=== PATIENT | male | born 1970 | race Caucasian/White ===

== ENCOUNTER → 2016-12-17 | Outpatient (CLI) | payer SELFPAY ==
[2016-12-17 11:04] LABS: BASOPHILS # (AUTO) 0.02 10*3/UL; BASOPHILS % (AUTO) 0.2 % (0-1); EOSINOPHILS # (AUTO) 0.05 10*3/UL; EOSINOPHILS % (AUTO) 0.5 % (0-8); HEMATOCRIT 48.4 % (42.0-52.0); HEMOGLOBIN 17.5 g/dL (14.0-18.0); MEAN CORPUSCULAR HEMOGLOBIN 37.7 PG (27-31); MEAN CORPUSCULAR HGB CONC 36.2 g/dL (33-37); MEAN CORPUSCULAR VOLUME 104.3 FL (80-90); MEAN PLATELET VOLUME 10.4 FL (7.4-12.2); MONOCYTES # (AUTO) 0.76 10*3/UL (0.3-0.8); NEUTROPHILS # (AUTO) 6.99 10*3/UL; NEUTROPHILS % (AUTO) 73.2 % (50-80); RED BLOOD COUNT 4.64 10^6/uL (4.70-6.10)
[2016-12-17 11:05] LABS: PLATELET MORPHOLOGY COMMENT NORMAL MORPHOLOGY (NORM); RBC MORPHOLOGY COMMENT NORMAL MORPHOLOGY (NORM); WBC MORPHOLOGY COMMENT NORMAL MORPHOLOGY (NORM)
== END ==
LOC: MOB LAB 09:54
PROVIDERS: ATTEND Physician Assistant Medical
DX: M25.562 Pain in left knee (principal)
CPT/HCPCS: 36415; 84550; 85025; 85652; 86038; 86140; 86200; 86431

== ENCOUNTER → 2016-12-18 | Outpatient (CLI) | payer SELFPAY ==
[2016-12-18 12:02] LABS: APPEARANCE,SYNOVIAL FLUID SLIGHTLY HAZY (CLEAR, STRA); COLOR,SYNOVIAL FLUID STRAW (CLR, STRW)
[2016-12-18 12:20] LABS: CRYSTALS, SYNOVIAL FLUID NONE SEEN (NS)
[2016-12-18 12:22] LABS: NEUTROPHILS,SYNOVIAL FLUID 88.9 %
== END ==
LOC: ORTHO 11:34
PROVIDERS: ATTEND Physician Assistant
DX: M25.462 Effusion, left knee (principal)
CPT/HCPCS: 84157; 87070; 87075; 89051; 89060

== ENCOUNTER → 2016-12-18 | Outpatient (CLI) | payer SELFPAY ==
--- NOTE | 2016-12-18 16:36 | DI ---
XR KNEE CMPT 4 OR MORE VWS,12/18/2016 10:41 AM: Clinical History: Left knee pain. Previous Exam: None at this facility. Findings: 4 views the left knee are obtained, and demonstrate anatomic alignment without fractures. There is a large left knee joint effusion. Impression: Large left knee joint effusion.
== END ==
LOC: ORTHO 10:47
PROVIDERS: ATTEND Physician Assistant
DX: M25.562 Pain in left knee (principal); M25.462 Effusion, left knee
CPT/HCPCS: 73564

== ENCOUNTER → 2016-12-20 | Outpatient (CLI) | payer SELFPAY ==
[2016-12-20 10:34] LABS: WBC, BODY FLUID 2.957 10*3/uL
[2016-12-20 10:35] LABS: APPEARANCE,SYNOVIAL FLUID CLEAR (CLEAR, STRA); COLOR,SYNOVIAL FLUID STRAW (CLR, STRW); NEUTROPHILS,SYNOVIAL FLUID 64.1 %
[2016-12-20 10:41] LABS: CRYSTALS, SYNOVIAL FLUID NONE SEEN (NS)
== END ==
LOC: LAB 09:25
PROVIDERS: ATTEND Physician Assistant
DX: M25.462 Effusion, left knee (principal); M25.562 Pain in left knee
CPT/HCPCS: 84157; 87070; 87075; 87205; 89051; 89060

== ENCOUNTER 2016-12-21 07:54 | Day surgery (SDC) | payer SELFPAY ==
[2016-12-21] MEDS ORDERED: Lactated Ringers 1,000 ML PRIMARY IV ONE (08:20)
[2016-12-21] MEDS ORDERED: LIDOCAINE W/ SODIUM BICARB 0.5 ML SYR ONE (08:20)
[2016-12-21] MEDS ORDERED: ceFAZolin Inj 2gm (Premix) 50 ML IV ONE (08:20)
[2016-12-21] MEDS ORDERED: fentaNYL Inj 250 MCG/5 ML VIAL ONE (08:55)
[2016-12-21] MEDS ORDERED: MIDAZOLAM 5 MG/1 ML ONE (08:55)
[2016-12-21] MEDS ORDERED: LIDOCAINE MPF 2% - 5 ML (20 MG/1 ML) ONE (08:56)
[2016-12-21] MEDS ORDERED: KETAMINE 100 MG/1 ML - 5 ML ONE (09:14)
[2016-12-21] MEDS ORDERED: KETOROLAC 30 MG/1 ML VIAL ONE (09:14)
[2016-12-21] MEDS ORDERED: ONDANSETRON 4 MG/2 ML VIAL ONE (09:14)
[2016-12-21] MEDS ORDERED: HYDROmorphone 2 MG/1 ML ONE ×2 (09:21→09:37)
[2016-12-21] MEDS ORDERED: Sodium Chloride 0.9% 1,000 ML ONE (09:27)
[2016-12-21] MEDS ORDERED: LABETALOL 20 MG/4 ML (5 MG/1 ML) SYRINGE ONE (09:41)
[2016-12-21] MEDS ORDERED: HYDROmorphone 2 MG/1 ML IVP PRN (10:21)
[2016-12-21] MEDS ORDERED: NORMAL SALINE 10 ML SYRINGE FLUSH IVP PRN (10:21)
[2016-12-21] MEDS ORDERED: fentaNYL Inj 100 MCG/2 ML VIAL IVP PRN (10:21)
[2016-12-21] MEDS ORDERED: ONDANSETRON 4 MG/2 ML VIAL IVP PRN (10:21)
[2016-12-21] MEDS ORDERED: HYDROcodone-APAP 5 MG -325 MG TABLET PO ONE (11:02)
[2016-12-21] MEDS ORDERED: LEVOFLOXACIN 500 MG TABLET PO ONE (11:07)
[2016-12-21] MEDS ORDERED: LEVOFLOXACIN 250 MG TABLET PO ONE (11:07)
[2016-12-21 11:18] VITALS: RESP 15
[2016-12-21 11:37] LABS: HEMATOCRIT 45.8 % (42.0-52.0); HEMOGLOBIN 15.6 g/dL (14.0-18.0); MEAN CORPUSCULAR HEMOGLOBIN 36.9 PG (27-31); MEAN CORPUSCULAR HGB CONC 34.1 g/dL (33-37); MEAN CORPUSCULAR VOLUME 108.3 FL (80-90); MEAN PLATELET VOLUME 9.2 FL (7.4-12.2); RED BLOOD COUNT 4.23 10^6/uL (4.70-6.10)
[2016-12-21 11:46] LABS: CRYSTALS, SYNOVIAL FLUID NONE SEEN (NS)
[2016-12-21 12:14] VITALS: TEMP 98.4
== END 2016-12-21 12:00 | disposition home or self-care (01) ==
LOC: SDSC 07:54
PROVIDERS: ATTEND Orthopaedic Surgery
DX: M00.862 Arthritis due to other bacteria, left knee (principal); M10.062 Idiopathic gout, left knee
CPT/HCPCS: 29871; 36415; 85027; 87070; 87075; 87205; 87641; 89060; J0690; J1885; J2704; J3010; J1170; J2001; J2250; J2405; J7030; J7120